=== PATIENT | male | born 1970 | race Asian ===

== ENCOUNTER 2024-07-11 12:14 | Emergency (ER) | payer OTHER, SELFPAY ==
[2024-07-11 12:18] VITALS: BP 112/61; PULSE 73; RESP 16; TEMP 36.2; O2SAT 97; BMI 28.1
--- NOTE | 2024-07-11 12:18 | ED.ALLEREA ---
HPI - Allergic Reaction General Chief complaint: Allergic Reaction Stated complaint: Allergic reaction Time Seen by Provider: 07/11/24 12:33 Related Data Previous Rx's ?Medication ?Instructions ?Recorded epinephrine 0.3 mg/0.3 mL 0.3 mg (0.3 mL) IM Q10M PRN 07/11/24 injection, auto-injector (Auvi-Q) anaphylaxis #2 ea Allergies Allergy/AdvReac Type Severity Reaction Status Date / Time raw fruit Allergy Unknown Uncoded 07/11/24 12:21 snap peas Allergy Unknown Uncoded 07/11/24 12:21 [facility] Social History Social History Smoked in Last 30 Days: No Use of substances other than those prescribed or required for medical reasons: No Advance Directives: No Physical Exam ED Vital Signs: Vital Signs - 24 hr 07/11/24 12:18 07/11/24 12:40 07/11/24 14:16 Temperature 97.2 F 98 F 97.6 F Pulse Rate 73 65 57 Respiratory Rate 16 16 14 Blood Pressure 112/61 110/69 107/59 L Pulse Oximetry 97 97 97 Oxygen Delivery Method Room Air Room Air Room Air BMI result Body Mass Index 28.1 Course Course Course Narrative: This is an RME: Additional HPI, ROS, PE not included below will be deferred to primary provider. RME assessment and note performed by: Liz Choi PA-C This is a 54-year-old male who presents to the ER with complaints of ?allergic reaction. Airway widely patent. Voice hoarse. Only had this while eating raw carrots . Plan: Medications Administered Discontinued Medications Generic Name Dose Route Start Last Admin Trade Name Freq PRN Reason Stop Dose Admin Diphenhydramine HCl 50 mg 07/11/24 12:18 07/11/24 12:32 Diphenhydramine Hcl 50 Mg/Ml Vial IVPUSH 07/11/24 12:19 50 mg ONCE ONE Administration Famotidine 20 mg 07/11/24 12:19 07/11/24 12:36 Famotidine/Pf 20 Mg/2 Ml Vial IVPUSH 07/11/24 12:20 20 mg ONCE ONE Administration Methylprednisolone Sodium Succinate 125 mg 07/11/24 12:18 07/11/24 12:36 Methylprednisolone Sod Succ 125 Mg/2 Ml Vial IVPUSH 07/11/24 12:19 125 mg ONCE ONE Administration Discharge Plan Discharge Clinical Impression: Allergic reaction Patient Disposition: Home, Self-Care Instructions: General Allergic Reaction (ED) Additional Instructions: You were seen in the emergency room with concerns for an allergic reaction. You did not experience an episode of anaphylaxis, but were provided medications for a mild allergic reaction. You are given a referral to follow up with an supervisor [facility] for further testing. Please follow up with the next week. Please follow up with your primary care doctor next week. You are given a prescription for an EpiPen. Please carry one with you at all times. Return to the emergency room with a new or concerning symptoms including, but not limited to hives, difficulty breathing, abdominal pain or nausea/vomiting. Return to the emergency room or call 911 at any time if you find you have to use your EpiPen. Prescriptions: New epinephrine [Auvi-Q] 0.3 mg/0.3 mL auto-injector 0.3 mg IM Q10M PRN (Reason: anaphylaxis) Qty: 2 0RF Rx Instructions: for 2 doses Referrals: [facility] [Provider Group] - 1 week Print Language: Taiwanese
[2024-07-11] MEDS: diphenhydrAMINE HCL 50 MG/ML VIAL IVPUSH (12:32)
--- NOTE | 2024-07-11 12:33 | ED_ITS ---
HPI - General Adult General Chief complaint: Allergic Reaction Stated complaint: Allergic reaction Time Seen by Provider: 07/11/24 12:33 Source: patient Mode of arrival: ambulatory Limitations: no limitations History of Present Illness HPI narrative: This is an otherwise healthy 54-year-old man who presents for evaluation of allergic reaction. Patient states that shortly prior to arrival he was eating. He has that his offered to him. He reports with a minutes developing a throat tightness sensation and a hoarse voice. Patient reports initially considering not come in, but he said his symptoms persisted so he presented for evaluation. Patient reports he previously had a much stronger allergic reaction to raw carrots. He states no previous allergy to snap peas. He states no dyspnea. He states no abdominal pain, nausea or vomiting. He states no urticaria. He states no chest pain. Related Data Previous Rx's ?Medication ?Instructions ?Recorded epinephrine 0.3 mg/0.3 mL 0.3 mg (0.3 mL) IM Q10M PRN 07/11/24 injection, auto-injector (Auvi-Q) anaphylaxis #2 ea Allergies Allergy/AdvReac Type Severity Reaction Status Date / Time raw fruit Allergy Unknown Uncoded 07/11/24 12:21 snap peas Allergy Unknown Uncoded 07/11/24 12:21 Review of Systems Review of Systems: ROS as per HPI [facility] Social History Social History Smoked in Last 30 Days: No Use of substances other than those prescribed or required for medical reasons: No Advance Directives: No Physical Exam ED Vital Signs: Vital Signs - 24 hr 07/11/24 12:18 07/11/24 12:40 07/11/24 14:16 Temperature 97.2 F 98 F 97.6 F Pulse Rate 73 65 57 Respiratory Rate 16 16 14 Blood Pressure 112/61 110/69 107/59 L Pulse Oximetry 97 97 97 Oxygen Delivery Method Room Air Room Air Room Air BMI result Body Mass Index 28.1 Gen: NAD, AOx3 speaking full sentences, tolerating secretions HEENT: NCAT, EOMI, normal conjunctiva, uvula midline without edema CV: RRR Pulm: CTAB, no increased work of breathing, no wheezes GI: Soft, NTND, no rebound, guarding or rigidity Neuro: Grossly non focal Medications Administered Discontinued Medications Generic Name Dose Route Start Last Admin Trade Name Freq PRN Reason Stop Dose Admin Diphenhydramine HCl 50 mg 07/11/24 12:18 07/11/24 12:32 Diphenhydramine Hcl 50 Mg/Ml Vial IVPUSH 07/11/24 12:19 50 mg ONCE ONE Administration Famotidine 20 mg 07/11/24 12:19 07/11/24 12:36 Famotidine/Pf 20 Mg/2 Ml Vial IVPUSH 07/11/24 12:20 20 mg ONCE ONE Administration Methylprednisolone Sodium Succinate 125 mg 07/11/24 12:18 07/11/24 12:36 Methylprednisolone Sod Succ 125 Mg/2 Ml Vial IVPUSH 07/11/24 12:19 125 mg ONCE ONE Administration Medical Decision Making Medical Decision Making MDM Narrative: Differential diagnosis includes, but is not limited to allergic reaction, anaphylaxis, angioedema. Patient is afebrile and hemodynamically stable on room air. 1245 - Exam is overall reassuring. Exam is not consistent with angioedema. Given single organ involvement (i.e. skin) and hemodynamic stability, there is low clinical suspicion for anaphylaxis. We will plan for a period of observation. Patient was provided diphenhydramine, famotidine and Solu-Medrol by triage provider. No indication for epinephrine at this time. On re-examination, patient is well-appearing and in no acute distress. ?Patient states symptoms have resolved. ?He is tolerating oral intake. There is no indication for further emergent evaluation in this otherwise well-appearing patient as above. ?Patient is provided written and verbal instructions, educational materials, recommendations for outpatient follow-up, prescription for Epi-Pen, strict return precautions and teach back is performed. ?Patient states understanding and agreement with plan of care. ?Patient is discharged home in stable and improved condition. Critical Care Time: A total of 35 minutes spent in direct patient care with coordinating critical resuscitation, procedures, reviewing records, discussing with consultants, reviewing labs, and/or managing patient. Admission/Observation Consideration of admission/observation: Escalation of care including admission/observation considered Discharge Plan Discharge Clinical Impression: Allergic reaction Patient Disposition: Home, Self-Care Instructions: General Allergic Reaction (ED) Additional Instructions: You were seen in the emergency room with concerns for an allergic reaction. You did not experience an episode of anaphylaxis, but were provided medications for a mild allergic reaction. You are given a referral to follow up with an [facility] for further testing. Please follow up with the next week. Please follow up with your primary care doctor next week. You are given a prescription for an EpiPen. Please carry one with you at all times. Return to the emergency room with a new or concerning symptoms including, but not limited to hives, difficulty breathing, abdominal pain or nausea/vomiting. Return to the emergency room or call 911 at any time if you find you have to use your EpiPen. Prescriptions: New epinephrine [Auvi-Q] 0.3 mg/0.3 mL auto-injector 0.3 mg IM Q10M PRN (Reason: anaphylaxis) Qty: 2 0RF Rx Instructions: for 2 doses Referrals: [facility] [Provider Group] - 1 week Print Language: Korean
[2024-07-11] MEDS: methylPREDNISolone Sod Succ 125 MG/2 ML VIAL IVPUSH (12:36)
[2024-07-11] MEDS: Famotidine/PF 20 MG/2 ML VIAL IVPUSH (12:36)
[2024-07-11 12:40] VITALS: BP 110/69; PULSE 65; RESP 16; TEMP 36.6; O2SAT 97
--- NOTE | 2024-07-11 12:49 | PC.NURSE ---
Pt comes to ED today for c/o allergic reaction follow ingesting snap peas. States he began to have throat irritation and hoarseness. This is similar to an allergic reaction he had to raw carrots in the past. VSS, A&Ox3, afebrile Breaths and speech are slow, even, and unlabored. Skin is warm and dry. No rash presents. No swelling for face, lips, or tongue. NAD noted. 20g to LAC and Pt medicated per NOV.
[2024-07-11 14:16] VITALS: BP 107/59; PULSE 57; RESP 14; TEMP 36.4; O2SAT 97
[2024-07-11 15:05] VITALS: BP 102/53; PULSE 60; RESP 16; TEMP 36.6; O2SAT 97
== END 2024-07-11 15:09 | disposition home or self-care (01) ==
PROVIDERS: Emergency Provider Emergency Medicine; PCP Family Medicine
DX: T78.40XA Allergy, unspecified, initial encounter (principal); R49.0 Dysphonia; X58.XXXA Exposure to other specified factors, initial encounter
CPT/HCPCS: 96374; 96375; 99284; J1200; J2919